=== PATIENT | male | born 1975 | race Caucasian/White ===

== ENCOUNTER 2023-06-08 08:59 | Outpatient (OUT) | payer OTHER, SELFPAY ==
--- NOTE | 2023-06-08 09:08 | ECG_ITS ---
[facility] Test Date: 2023-06-08 Pat Name: MICHELLE LORD Department: Room: - Gender: Male [employer]: : [id number] Requested By: GALINA PAREDES Order Number: [id number] Reading MD: RADHA GRANDA Measurements Intervals [place] Rate: 56 P: 49 VA: 202 QRS: 13 QRSD: 89 T: 13 QT: 404 QTc: 390 Interpretive Statements SINUS BRADYCARDIA No previous ECG available for comparison Electronically Signed On 06-10-2023 18:21:53 EDT by RADHA GRANDA
[2023-06-08 09:59] LABS: INR 0.97; Partial Thromboplastin Time 27.9 sec (22.3-36.2); Prothrombin Time 10.3 sec (9.0-11.6)
[2023-06-08 10:03] LABS: Basophils Percent Auto 0.6 % (0.2-2.0); Eosinophils Percent Auto 0.6 % (0.9-7.0); Hematocrit 43.8 % (42.0-54.0); Hemoglobin 14.2 g/dL (14.0-18.0); Immature Granulocytes Abs Auto 0.03 10^3/uL (0.00-0.03); Immature Granulocytes Pct Auto 0.5 % (0.0-0.5); Lymphocytes Absolute Auto 1.2 10^3/uL (1.2-3.8); Lymphocytes Percent Auto 18.5 % (20.5-60.0); Mean Corpuscular HGB Conc 32.4 g/dL (29.9-35.2); Mean Corpuscular Hemoglobin 30.3 pg (25.9-34.0); Mean Corpuscular Volume 93.4 fL (80.0-94.0); Mean Platelet Volume 11.7 fL (9.5-13.5); Monocytes Absolute Auto 0.5 10^3/uL (0.3-0.8); Monocytes Percent Auto 8.3 % (1.7-12.0); Neutrophils Absolute Auto 4.6 10^3/uL (1.4-6.5); Neutrophils Percent Auto 71.5 % (43.0-75.0); Platelet Count 182 10^3/uL (150-450); Red Blood Count 4.69 10^6/uL (4.70-6.10); Red Cell Distribution Width 12.7 % (11.0-15.0); White Blood Count 6.4 10^3/uL (4.0-11.0)
== END 2023-06-08 09:00 | disposition home or self-care (01) ==
LOC: PST 09:03
PROVIDERS: PCP Nurse Practitioner Family; Visit Provider Otolaryngology
DX: Z01.810 Encounter for preprocedural cardiovascular examination (principal); Z01.812 Encounter for preprocedural laboratory examination; H69.83 Other specified disorders of Eustachian tube, bilateral
CPT/HCPCS: 85025; 85610; 85730; 93005

== ENCOUNTER 2023-06-19 07:43 | Day surgery (SDC) | payer OTHER, SELFPAY ==
[2023-06-08 09:57] VITALS: BP 96/64; PULSE 58; RESP 20; TEMP 36.4; BMI 26.7
[2023-06-19] VITALS (8 sets, daily range): BP systolic 105–118; BP diastolic 62–76; PULSE 48–65; RESP 12–18; TEMP 35.9–36.6; O2SAT 93–100
--- NOTE | 2023-06-19 | OP_ITS ---
OPERATION DATE: ??06/19/2023 PRIMARY CARE PHYSICIAN:? Syd Su M.D. SURGEON:? Tasha Le M.D. PREOPERATIVE DIAGNOSIS:? Bilateral eustachian tube dysfunction. POSTOPERATIVE DIAGNOSIS:? Bilateral eustachian tube dysfunction plus left chronic myringitis. PROCEDURE:? Bilateral myringotomy and tubes. ANESTHESIA:? General LMA COMPLICATIONS:? None. FINDINGS:? Right posterior tympanic membrane retraction reduced.? Left stapediopexy and granulation tissue on the left posterior tympanic membrane annulus.? INDICATIONS:? This 48-year-old man has a long history of chronic eustachian tube dysfunction symptoms, tympanic membrane retraction and difficulty flying. PROCEDURE:? Patient identified in the holding area and taken back to the OR where he was placed in the supine position.? After induction of general anesthesia using nitrous oxide to reduce the patient?s tympanic membrane retraction, the right ear was approached with the otomicroscope.? An anterior radial myringotomy was performed.? A modified Lorenzo?s T-tube was folded, inserted through the myringotomy and opened in the middle ear using microdissection.? Attention was then turned to the left ear and the same procedure performed.? In the left, there was a crust originating from the posterior annulus of the tympanic membrane which was debrided, and there was a small amount of granulation tissue evident.? Ciprodex drops were infused in the ear.? Patient was then awakened and taken to the recovery room in good condition. LAW
[2023-06-19] MEDS: LACTATED RINGER'S SOLUTION 1,000 ML 50 ML IV (08:11)
[2023-06-19] MEDS: CIPROFLOXACIN HCL/DEXAMETH 0.3%/0.1% OTIC SUSP 150 DROP/7.5 ML BOTTLE OT (09:31)
--- NOTE | 2023-06-19 09:47 | PC.NURSE ---
COTTONBALL LEFT EAR DRY AND INTACT
--- NOTE | 2023-06-19 10:10 | PC.NURSE ---
cottonball to left ear dry
[2023-06-19] MEDS: ACETAMINOPHEN 325 MG TABLET 650 MG PO (10:20)
== END 2023-06-19 10:45 | disposition home or self-care (01) ==
PROVIDERS: PCP Nurse Practitioner Family; Visit Provider Otolaryngology
PROC: (CPT 69436; principal; 2023-06-19 08:50)
DX: H69.83 Other specified disorders of Eustachian tube, bilateral (principal); H73.12 Chronic myringitis, left ear
CPT/HCPCS: 69436; 36415; J2704

== ENCOUNTER 2024-12-31 16:08 | Outpatient (REF) | payer OTHER, SELFPAY | END 2024-12-31 16:09 | disposition home or self-care (01) | LOC: LAB 16:08 | PROVIDERS: PCP Nurse Practitioner Family; Visit Provider Otolaryngology | DX: H92.09 Otalgia, unspecified ear (principal) | CPT/HCPCS: 87070 ==